=== PATIENT | male | born 2000 | race Hispanic/Latino ===

== ENCOUNTER 2020-11-04 23:24 | Emergency (ER) | payer BC, SELFPAY ==
[2020-11-04 23:30] VITALS: BP 152/95; PULSE 134; RESP 17; TEMP 36.4; O2SAT 98; BMI 28.1
--- NOTE | 2020-11-04 23:59 | ED_ITS ---
HPI - Animal Bite General Chief Complaint: Animal Bite Stated Complaint: his dog bit right/left arm Time Seen by Provider: 11/04/20 23:39 History of Present Illness HPI narrative: 20-year-old male nonsmoker with noncontributory medical history presents with his older brother and a chief complaint of multiple dog bites to bilateral arms. Patient's dog him had vomited and in his brother were attempting to move him out of the way in an attempt to clean when the dog jumped up and bit them both. Shots are up-to-date and dog is otherwise acting normal. Patient has no other complaints and is otherwise well and free of complaint Related Data Previous Rx's Medication Instructions Recorded mupirocin 2 % topical ointment 1 applic TOPICAL BID #30 g 06/25/20 amoxicillin 875 mg-potassium 1 tab PO BID #20 tab 11/05/20 clavulanate 125 mg tablet (Augmentin) Allergies Allergy/AdvReac Type Severity Reaction Status Date / Time No Known Drug Allergies Allergy Verified 11/05/20 00:09 Review of Systems Review of Systems Narrative: GENERAL: Denies chills, fatigue, malaise, fever, sweats. HEENT: Denies sinus pain, ear pain, sore throat, difficulty swallowing, dizziness. RESPIRATORY: Denies dyspnea, cough, wheezing, hemoptysis, sputum. CARDIOVASCULAR: Denies chest pain, palpitations, orthopnea, edema, GASTROINTESTINAL: Denies nausea, vomiting, abdominal pain, diarrhea, constipation, melena. : Denies dysuria, frequency, incontinence, hematuria, urinary retention. MUSCULOSKELETAL: denies weakness, joint pain, or bony pain SKIN: See HPI NEUROLOGIC: Denies weakness, headache, numbness, change in speech, confusion, seizures, incoordination. PSYCHIATRIC: No concerning psychosocial issues. 12 point review of systems is negative except for those stated above Patient History Medical History No active medical problems Social History Smoking Status: Never smoker Smoking Status: Never smoker Exam Narrative Exam Narrative: GEN: AOx3 and in mild distress EYES: Pupils are equal, round, and reactive to light and accommodation. Extraoccular muscles are intact bilaterally. There is no subconjunctival hemorrhage or exudate. CHEST: Lungs are clear to auscultation bilaterally and free of wheezes, rales, or rhonchi. Heart rate is regular rhythm, there are no murmurs, clicks, rubs, or gallops. There is no chest wall tenderness. ABD: Abdomen is soft and nontender. There is no guarding or rebound. Bowel sounds are normal in all 4 quadrants. There is no mass or organomegaly. EXT: Full painless ROM of all extremities with no loss of sensation or strength. SKIN: Multiple small puncture wounds on bilateral arms, 2 on dorsal right forearm measuring 0.5 and 1.0 cm requiring repair and a larger 2.5 cm on the lef t biceps requiring repair Warm, pink, and dry. No erythema or rash Initial Vital Signs Initial Vital Signs: Vital Signs Temperature 97.6 F 11/04/20 23:30 Pulse Rate 134 H 11/04/20 23:30 Respiratory Rate 17 11/04/20 23:30 Blood Pressure 152/95 H 11/04/20 23:30 Pulse Oximetry 98 11/04/20 23:30 Procedures [facility] [place] Procedure Name of Procedure: Repair of laceration: [1cm, 1cm, 2.5cm] Verbal consent was obtained. [See Exam section for a description of the wound.] The area around the wounds were cleansed, prepped and draped in a normal manner. [Local] anesthesia was performed using [1% lidocaine w/bicarb]. The wounds were thoroughly irrigated cleaned with chlorhexadine. [no] foreign bodies were noted. The wounds were repaired with [single] layer(s) using [5-0 nylon]. The wounds were dressed. The patient tolerated the procedure well. There were [no complications.] Course Orders Ordered: Discontinued Medications Amoxicillin/Clavulanate Potassium (Amoxicillin/Clav 875/125 Mg) 1 tab PO NOW ONE Stop: 11/05/20 00:04 Last Admin: 11/05/20 00:15 Dose: 1 tab Documented by: TODD Bacitracin (Bacitracin Oint 0.9 Gm Pckt) 3 applic TOP NOW ONE Stop: 11/05/20 00:41 Last Admin: 11/05/20 00:45 Dose: 3 applic Documented by: BJORN Lidocaine/Sodium Bicarbonate (Lido 1%/Sod Bicarb 8.4% (10ml) 10 Ml Syringe) 10 ml INJ NOW ONE Stop: 11/05/20 00:04 Last Admin: 11/05/20 00:15 Dose: 10 ml Documented by: TODD Vital Signs Vital signs: Vital Signs - 8 hr 11/04/20 23:30 11/05/20 00:24 Temperature 97.6 F Pulse Rate 134 H 78 Respiratory Rate 17 16 Blood Pressure 152/95 H 137/73 Pulse Oximetry 98 Discharge Plan Departure Patient Disposition: Home Clinical Impression: Dog bite Instructions: DI for Animal Bites Activity Restrictions/Additional Instructions: *You have been diagnosed with [dog bites with lacerations *What to do: *Please continue to take your regular medications as directed. [x ] New medication prescriptions sent to your pharmacy: [ [facility]] [ ] New medication written as a paper prescription [ ] No new medications given * Please keep the wound clean and dry to the best of your ability. Please monitor for signs of infection such as redness to the skin or increasing pain. Have the sutures removed by your doctor in about 7 days. If you are unable to get into your doctor, we would be happy to remove the sutures in that same timeframe. *If you do not have a primary care provider please contact the [facility] Resource line at [phone]. They will ask some questions about your medical history and help get you set up with a doctor in the community. *Return to Emergency Department if you should have any new, worsening or concerning symptoms, such as [fever greater than 101 F, shaking chills, worsening pain, persistent vomiting or other bothersome symptoms] Prescriptions: New amoxicillin-pot clavulanate [Augmentin] 875-125 mg tablet 1 tab PO BID Qty: 20 RF: 0 No Action mupirocin 2 % ointment 1 applic topical BID Qty: 30 RF: 0 Referrals: Miscellaneous,Doctor, MD [Primary Care Provider] -
[2020-11-05] MEDS: AMOXICILLIN/CLAV 875/125 MG 1 TAB PO (00:15)
[2020-11-05] MEDS: LIDO 1%/SOD BICARB 8.4% (10ML) 10 ML SYRINGE INJ (00:15)
[2020-11-05 00:24] VITALS: BP 137/73; PULSE 78; RESP 16
[2020-11-05] MEDS: BACITRACIN OINT 0.9 GM PCKT 3 APPLIC TOP (00:45)
--- NOTE | 2020-11-05 01:02 | PC.NURSE ---
Placed bacitracin, telfa and gauze wrap around multiple wounds.
== END 2020-11-05 01:04 | disposition home or self-care (01) ==
PROVIDERS: Emergency Provider Emergency Medicine
DX: S41.152A Open bite of left upper arm, initial encounter (principal); W54.0XXA Bitten by dog, initial encounter
CPT/HCPCS: 12002; 99283